=== PATIENT | female | born 1995 | race Caucasian/White ===

== ENCOUNTER 2018-02-10 06:53 | Emergency (ER) | payer BC ==
--- NOTE | 2018-02-10 07:21 | Emergency Department Record ---
History of Present Illness - General Chief Complaint: Overdose Stated Complaint: ADVERSE MEDICATION EFFECT Time Seen by Provider: 02/10/18 07:02 Source: Patient Mode of Arrival: Ambulatory Limitations: No limitations - History of Present Illness Initial Comments: The patient is here due to "having a bad acid trip." She decided to try acid for the first time last evening along with alcohol and marijuana and became belligerent and combative. Now the patient is doing well and denies any problems. She denies any pain, trauma, or any suicidal intention. MD Complaint: Accidental overdose Onset/Timin -: Days(s) Substance Ingested: Marijuana, Acid, Alcohol, Xanax, prozac - Detail Intent: Other Context: Intentional Overdose: Other Associated Symptoms: Dizziness Treatments Prior to Arrival: None - Related Data Home Medications Medication Instructions Recorded Confirmed Last Taken Alprazolam [Xanax] 0.25 mg PO Q8H PRN 02/10/18 02/10/18 Unknown Fluoxetine HCl [Prozac] 20 mg PO BID 02/10/18 02/10/18 Unknown Allergies Allergy/AdvReac Type Severity Reaction Status Date / Time Penicillins Allergy HIVES Verified 02/10/18 06:56 Travel Screening - Travel/Exposure Within Last 30 Days Have you traveled within the last 30 days?: No Review of Systems Constitutional: Denies: Chills, Fever Eyes: Denies: Eye discharge ENT: Denies: Congestion, Other Respiratory: Denies: Cough, Dyspnea Past Medical History - SOCIAL HISTORY Smoking Status: Never smoker Alcohol Use: Occasional Drug Use Detail:: Marijuana, Other - RESPIRATORY Hx Respiratory Disorders: Yes Hx Asthma: Yes - CARDIOVASCULAR Hx Cardio Disorders: No - NEURO Hx Neuro Disorders: No - GI Hx GI Disorders: No - Hx Genitourinary Disorders: No - ENDOCRINE Hx Endocrine Disorders: No - MUSCULOSKELETAL Hx Musculoskeletal Disorders: No - PSYCH Hx Psych Problems: Yes Hx Anxiety: Yes Hx Depression: Yes - HEMATOLOGY/ONCOLOGY Hx Hematology/Oncology Disorders: No Family Medical History Any Significant Family History?: No Physical Exam - General General Appearance: Alert, Oriented x3, Cooperative, No acute distress - Head Head exam: Atraumatic, Normocephalic - Eye Eye exam: Normal appearance, PERRL - ENT Throat exam: Normal inspection. negative: Tonsillar erythema, Tonsillar exudate - Neck Neck exam: Normal inspection, Full ROM. negative: Tenderness - Respiratory Respiratory exam: Normal lung sounds bilaterally. negative: Respiratory distress - Cardiovascular Cardiovascular Exam: Regular rate, Normal rhythm, Normal heart sounds - GI/Abdominal GI/Abdominal exam: Soft, Normal bowel sounds. negative: Tenderness - Extremities Extremities exam: Normal inspection, Full ROM, Normal capillary refill. negative: Tenderness - Neurological Neurological exam: Alert, Normal gait, Oriented X3. negative: Abnormal gait, Altered - Psychiatric Psychiatric exam: negative: Anxious, Depressed - Skin Skin exam: negative: Rash Course Vital Signs 02/10/18 06:57 Temperature 98.0 F Pulse Rate [ 94 H Pulse Ox Probe] Respiratory 16 Rate Blood Pressure 151/93 [Left Arm] Pulse Ox 100 - Reevaluation(s) Reevaluation #1: The patient is doing very well at this time. She is alert and oriented x 3 and acting very appropriately. She is answering questions normally and denies any pain or discomfort. 02/10/18 08:24 Reevaluation #2: The patient is doing very well at this time. Her speech is clear and she is very calm and cooperative. She is resting comfortably but states she is not ready to leave yet because she feels the "acid" is still in her system. 02/10/18 09:44 Reevaluation #3: The patient is doing very well at this time. He is up walking with no difficulty. I did discuss the need for F/U do to the elevated liver enzymes and the need to NOT take any illegal drugs. 02/10/18 10:40 Medical Decision Making - Lab Data Result diagrams: 02/10/18 07:25 02/10/18 07:25 Disposition Disposition: Discharge Clinical Impression: Drug abuse Disposition: Home, Self-Care Condition: (2) Stable Instructions: Polysubstance Abuse (ED) Additional Instructions: Please drink plenty of fluids and do not take any illegal drugs. Please see your family doctor soon to recheck your elevated liver enzymes. Return to the ER for any worsening issues. Forms: Patient Portal Access Time of Disposition: 10:41 Quality - Quality Measures Quality Measures: N/A - Blood Pressure Screening View Details: Yes Does Patient Have Any of the Following: No Blood Pressure Classification: Pre-Hypertensive BP Reading Systolic Measurement: 130 Diastolic Measurement: 81 Screening for High Blood Pressure: < Pre-Hypertensive BP, F/U Documented > [ [id number]] Pre-Hypertensive Follow-up Interventions: Referral to alternative/primary care provider.
[2018-02-10 07:38] LABS: BASO % 0.5 % (0-6); EOS % 0.1 % (0-6); GRAN % 71.1 % (47-80); HEMOGLOBIN 15.5 gm/dl (11.6-16.0); MEAN CELL VOLUME 84.8 fl (81-97); MEAN PLATELET VOLUME 8.5 fl (7.4-10.4); MONO % 5.3 % (0-9); PLATELET COUNT 272 K/uL (130-400); RED BLOOD COUNT 5.54 M/uL (3.80-5.40); RED CELL DISTRIBUTION WIDTH 13.3 % (11.5-14.5); WHITE BLOOD COUNT W/O DIFF 8.6 K/uL (4.2-12.2)
[2018-02-10 07:41] LABS: MEAN CORPUSCULAR HEMOGLOBIN 27.9 pg (27-33)
[2018-02-10 08:00] LABS: BLOOD UREA NITROGEN 7 mg/dL (6-20); CREATININE 0.6 mg/dL (0.5-0.9); EST GLOMERULAR FILTRATION RATE > 60 mL/min
[2018-02-10 08:01] LABS: TOTAL PROTEIN 8.4 g/dL (6.6-8.7)
[2018-02-10 08:03] LABS: GLUCOSE,RANDOM 123 mg/dL (74-109)
[2018-02-10 08:05] LABS: ALB/GLOB RATIO 1.4 (1.1-1.8); ALBUMIN 4.9 g/dL (4.0-5.0); ALKALINE PHOSPHATASE 95 U/L (35-104); ALT/SGPT 37 U/L (<33); AST/SGOT 38 U/L (10.0-35.0)
[2018-02-10 08:14] LABS: ACETAMINOPHEN < 5.0 ug/mL (10.0-30.0); SALICYLATE < 0.3 mg/dL (2.8-20)
[2018-02-10 09:35] LABS: AMPHETAMINE SCREEN URINE NOT DETECTED; BARBITURATE SCREEN URINE NOT DETECTED; BENZODIAZEPINE SCREEN URINE NOT DETECTED; COCAINE SCREEN URINE NOT DETECTED; METHADONE SCREEN URINE NOT DETECTED; METHAMPHETAMINE SCREEN NOT DETECTED; OPIATE SCREEN URINE NOT DETECTED; OXYCODONE SCREEN URINE NOT DETECTED; PHENCYCLIDINE SCREEN URINE NOT DETECTED; PROPOXYPHENE SCREEN URINE NOT DETECTED; THC SCREEN URINE DETECTED; TRICYCLIC ANTIDEPRESSANT SCRN NOT DETECTED
== END 2018-02-10 12:01 | disposition home or self-care (01) ==
LOC: MERGE 06:53 → ER 06:53
DX: F16.10 Hallucinogen abuse, uncomplicated (principal); F12.10 Cannabis abuse, uncomplicated; F19.10 Other psychoactive substance abuse, uncomplicated
CPT/HCPCS: 99283 ×2; 85025; 80053; 80305; G0480 ×3; 80320; 80329